=== PATIENT | female | born 1940 | race Caucasian/White ===

== ENCOUNTER 2019-07-22 08:37 | Emergency (ER) | payer OTHER, SELFPAY ==
[~2019-07-22] VITALS: Ht 167.6 cm; Wt 60.0 kg
[2019-07-22] MEDS ORDERED: SODIUM CHLORIDE 0.9% 1,000 ML IV ONE (09:00)
[2019-07-22 09:26] LABS: BASOPHILS % 0.5 % (0.0-2.0); EOSINOPHILS % 0.3 % (0.0-5.0); HEMATOCRIT. 42.2 % (36.0-48.0); HEMOGLOBIN. 14.4 g/dL (12.0-16.0); LYMPHOCYTES % 16.7 % (20.0-50.0); MEAN CORPUSCULAR VOLUME 93.7 fL (81.0-99.0); MEAN PLATELET VOLUME 9.7 fl (7.4-10.4); MONOCYTES % 6.1 % (2.0-8.0); NEUTROPHILS % 76.4 % (40.0-76.0); PLATELET 181 x1000/uL (130-400); RED CELL DISTRIBUTION WIDTH 13.6 % (11.6-14.6)
[2019-07-22 09:34] LABS: CHLORIDE 110 mEq/L (98-107)
[2019-07-22 09:35] LABS: PARTIAL THROMBOPLASTIN TIME 24.2 sec (23.4-31.0); PROTHROMBIN TIME 10.3 sec (9.6-11.0)
[2019-07-22 09:37] LABS: ETHANOL BLOOD < 10 mg/dL
[2019-07-22 09:43] LABS: CREATINE KINASE 294 IU/L (26-192)
[2019-07-22 11:30] LABS: CLARITY URINE CLEAR (CLEAR); COLOR URINE DARK YELLOW (YELLOW); KETONES URINE TRACE (NEGATIVE); LEUKOCYTE ESTERASE URINE TRACE (NEGATIVE); NITRITE URINE POSITIVE (NEGATIVE); OCCULT BLOOD URINE TRACE (NEGATIVE); PH URINE 5.5 (4.5-8.0); PROTEIN URINE NEGATIVE (NEGATIVE); SPECIFIC GRAVITY URINE 1.019 (1.005-1.030); UROBILINOGEN URINE 0.2 E.U./dL (0.2-1.0)
[2019-07-22 11:59] LABS: *AMPHETAMINES SCREEN URINE NEGATIVE (NEGATIVE); *BARBITURATES SCREEN URINE NEGATIVE (NEGATIVE); *BENZODIAZEPINES SCREEN URINE NEGATIVE (NEGATIVE)
[2019-07-22 12:00] LABS: *COCAINE SCREEN URINE NEGATIVE (NEGATIVE)
[2019-07-22 12:03] LABS: CANNABINOID URINE SCREEN NEGATIVE (NEGATIVE)
[2019-07-22 12:04] LABS: METHADONE URINE SCREEN NEGATIVE (NEGATIVE); OPIATES URINE SCREEN NEGATIVE (NEGATIVE)
[2019-07-22 12:05] LABS: PHENCYCLIDINE URINE SCREEN NEGATIVE (NEGATIVE)
[2019-07-22 12:54] VITALS: BP 129/81
== END 2019-07-22 13:01 | disposition short-term general hospital (02) ==
LOC: ER 08:37 → CANBEDREQ 13:20
DX: G93.40 Encephalopathy, unspecified (principal); S00.83XA Contusion of other part of head, initial encounter; E86.0 Dehydration; I10 Essential (primary) hypertension; G20 Parkinson's disease; W01.0XXA Fall on same level from slipping, tripping and stumbling without subsequent striking against object, initial encounter; Y93.89 Activity, other specified; Y92.9 Unspecified place or not applicable
CPT/HCPCS: 36415; 51702; 70450; 70486; 71045; 80053; 80305; 80320; 81003; 82550; 82553; 83605; 83880; 84484; 85025; 85610; 85730; 87040; 87086; 93005; 96360; 99284; J7030; Z7610; A4315; G0480